=== PATIENT | female | born 1995 | race Caucasian/White ===

== ENCOUNTER 2019-01-27 02:40 | Inpatient (IN) | payer OTHER ==
[2019-01-27] MEDS: ELECTROLYTE-148 SOLN 1,000 ML IV SCH ×2 (03:30→07:30)
[2019-01-27 04:37] LABS: BASO % 0.4 % (0-2.0); EOS % 0.5 % (0-4.5); HEMATOCRIT 34.6 % (32.4-45.2); LYMPH % 13.1 % (8-40); MCH 30.1 pg (25.7-33.7); MCHC 34.7 g/dl (32.0-36.0); MEAN CELL VOLUME 86.8 fl (80-96); MEAN PLT VOLUME 9.4 fl (7.5-11.1); MONO % 5.1 % (3.8-10.2); NEUT % 80.9 % (42.8-82.8); PLATELET COUNT 216 K/MM3 (134-434); RBC 3.98 M/mm3 (3.60-5.2); RDW 13.3 % (11.6-15.6); WHITE BLOOD COUNT 11.3 K/mm3 (4.0-10.0)
[2019-01-27 04:59] VITALS: BMI 31.6
[2019-01-27 05:05] LABS: BLOOD UREA NITROGEN 9.2 mg/dL (7-18); CREATININE 0.5 mg/dL (0.55-1.3); INR 1.04 (0.83-1.09); POTASSIUM 4.5 mmol/L (3.5-5.1); PROTHROMBIN TIME (PATIENT) 12.3 SEC (9.7-13.0)
[2019-01-27] MEDS ORDERED: BUTORPHANOL TARTRATE 1 MG/ML VIAL IVPB ONE (05:20)
[2019-01-27] MEDS ORDERED: PROMETHAZINE HCL 25 MG/1 ML VIAL IVPB ONE (05:20)
[2019-01-27] MEDS ORDERED: BUTORPHANOL TARTRATE 1 MG/ML VIAL ONE ×2 (05:32)
[2019-01-27] MEDS ORDERED: PROMETHAZINE HCL 25 MG/1 ML VIAL ONE (05:33)
--- NOTE | 2019-01-27 05:36 | HP ---
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: Alzheimer's, CVA, Dementia, Migraine, Multiple Sclerosis, Peripheral Neuropathy, Parkinson's, Seizure, Syncope, TIA, Vertigo, Other Cardiovascular: No: AFIB, Aneurysm, Aortic Insufficiency, Aortic Stenosis, CAD, CHF, Deep Vein Thrombosis, HTN, Hyperlipdemia, [place], Mitral Insufficiency, Mitral Stenosis, Murmur, Pulmonary Hypertension, Other Pulmonary: No: Asthma, Bronchitis, Cancer, COPD, O2 Dependent, Pneumonia, Previously Intubated, Pulmonary Embolus, Pulmonary Fibrosis, Sleep Apnea, Other Gastrointestinal: No: Ascites, Cancer, Constipation, Crohn's Disease, Diverticulitis, Diverticulosis, Esophageal Varices, Gastritis, GERD, GI Bleed, Hemorrhoids, Hiatal Hernia, Inflamatory Bowel Disease, Irritable Bowel Disease, Pancreatitis, Peptic Ulcer Disease, Ulcerative Colitis, Other Hepatobiliary: No: Cirrhosis, Cholelithiasis, Cholecystitis, Choledocholithiasis , Hepatitis A, Hepatitis B, Hepatitis C, Other Renal/: No: Renal Failure, Renal Inusuff, BPH, Cancer, Hematuria, Hemodialysis , Neurogenic Bladder, Renal Calculi, UTI, Other Reproductive: No: Ectopic , Endometriosis, Fibroids, PID, Polycystic Ovary Syndrome, Postmenopausal, Other ...: 3 ...Para: 0 ...Term: 0 ...: 0 ...Spon : 0 ...Induced : 2 ...Multiple Gestation: 0 ...LMP: 04/30/18 ... Weeks Gestation by Dates: 38.5 ...EDC by Dates: 02/04/19 Heme/Onc: No: Anemia, B12 Deficiency, Bleeding Disorder, Cancer, Current Chemotherapy, Current Radiation Therapy, Hemochromatosis, Hypercoaguable State, Myeloproliferative Synd, Sickle Cell Disease, Sickle Cell Trait, Thrombocytopenia, Other Infectious Disease: No: AIDS, C-Diff, Herpes Zoster, HIV, MRSA, STD's, Tuberculosis, VREF, Other Psych: No: Addictions, Anxiety, Bipolar, Depression, Panic, Psychosis, Schizophrenia, Other Musculoskeletal: No: Bursitis, Chronic low back pain, Hemiparesis, Hemiplegia, Osteoarthritis, Paraplegia, Other Rheumatology: No: Fibromyalgia, Gout, Lupus, Rheumatoid Arthritis, Sarcoidosis, Vasculitis, Other ENT: No: Allergic Rhinitis, Sinusitis, Other Endocrine: No: Rapides's Disease, Amarjit's Disease, Diabetes Insipidus, Diabetes Mellitus, Hyperparathyroidism, Hyperthyroidism, Hypothyroidism, Osteopenia, SIADH, Other Dermatology: No: Basal Cell, Cellulitis, Eczema, Melanoma, Psoriasis, Squamous Cell, Other - Past Surgical History Past Surgical History: No: None, AAA Repair, AICD, Amputation, Appendectomy, Arthrosocopy, AV Fistula/Graft, Bariatric Surgery, Breast Biopsy, Bypass, CABG, Carotid Endarterectomy, Cataract Removal, Cholecystectomy, Colectomy, Colonoscopy, Colostomy, Craniotomy, , Cystectomy, Hernia Repair, Hysterectomy, Ileal Conduit, Ileosotomy, Joint Replacement, Kidney Transplant, Laminectomy, Liver Transplant, Mastectomy, Nephrectomy, Oopherectomy, Orchiectomy, Permanent Pacemaker, Prostatectomy, Splenectomy, Stent, Thoracotomy , TURP, Tonsillectomy, Tubal Ligation, Upper Endoscopy, Valve Replacement, Vasectomy, Vein Stripping/Ligation Hx Myomectomy: No Hx Transabdominal Cerclage: No - Smoking History Smoking history: Never smoked Have you smoked in the past 12 months: No - Alcohol/Substance Use Hx Alcohol Use: No Home Medications - Allergies Allergies/Adverse Reactions: Allergies Allergy/AdvReac Type Severity Reaction Status Date / Time No Known Allergies Allergy Verified 01/27/19 04:43 - Home Medications Home Medications: Ambulatory Orders Ferrous Sulfate [Iron] 1 tab PO DAILY 01/27/19 Glyburide 2.5 mg PO DAILY 01/27/19 Vitamins (Sjr) - 1 tab PO DAILY 01/27/19 Review of Systems - Review of Systems Constitutional: reports: No Symptoms Eyes: reports: No Symptoms HENT: reports: No Symptoms Neck: reports: No Symptoms Cardiovascular: reports: No Symptoms Respiratory: reports: No Symptoms Gastrointestinal: reports: No Symptoms Genitourinary: reports: No Symptoms, Testicular Pain Musculoskeletal: reports: No Symptoms Integumentary: reports: No Symptoms Neurological: reports: No Symptoms Endocrine: reports: No Symptoms Hematology/Lymphatic: reports: No Symptoms Psychiatric: reports: No Symptoms Physical Exam - Maternity Vital Signs: Vital Signs Temperature 98.7 F 01/27/19 04:50 Pulse Rate 94 H 01/27/19 04:50 Respiratory Rate 19 01/27/19 04:50 Blood Pressure 133/73 01/27/19 04:50 O2 Sat by Pulse Oximetry (%) Constitutional: Yes: Well Nourished HENT: Yes: Atraumatic Neck: Yes: Supple Cardiovascular: Yes: Regular Rate and Rhythm Lungs: Clear to auscultation - Abdominal Exam/OB Number of Fetuses: Single Presentation: Vertex (sutures palpated) Contractions: Yes Regularity: Regular Intensity: Mod/Strong Monitor Mode: External Heart Rate (range): 150 Category: I Accelerations: Uniform Decelerations: None - Vaginal Exam/OB Speculum Exam: No Dilatation (cm): 3 Effacement (%): 60 Amniotic Membrane Status: Ruptured Nitrazine Test: Positive Presentation: Vertex/Position Station: -3 - Physical Exam Musculoskeletal: Yes: WNL Extremities: Yes: WNL Edema: Yes Edema: LLE: Trace, RLE: Trace Integumentary: Yes: WNL ...Motor Strength: WNL Psychiatric: Yes: Alert, Oriented - Labs Lab Results: CBC, BMP 01/27/19 04:00 01/27/19 04:00 Imaging - Results Ultrasound: Report Reviewed (01/20/19 sono: cephalic, anterior placenta, 3500g ( 75%) and AC 90%) Assessment/Plan 23 y/o @ 38.6wks, latent labor S/P SROM, GBS negative, reassuring and maternal condition, A2GDM. Counseling regarding gestational diabetes including its risks and complications. All questions answered and informed consent obtained. Patient requesting IV pain control. -Labs -FS q4hrs -continuous monitoring -IV pain control -Expectant management
[2019-01-27] MEDS ORDERED: FENTANYL/BUPIVACAINE/NS/PF - PCEA - 50 ML DISP.SYRIN EP ONE ×4 (07:30→17:42)
--- NOTE | 2019-01-27 07:39 | PN ---
Ante-Partal Exam - Subjective Subjective: Patient evaluated for pain and progression of labor Vital Signs: Vital Signs Temperature 98.5 F 01/27/19 06:00 Pulse Rate 67 01/27/19 06:00 Respiratory Rate 20 01/27/19 06:00 Blood Pressure 123/86 01/27/19 06:00 O2 Sat by Pulse Oximetry (%) Bleeding: No Headache: No Visual changes: No Right upper quadrant pain: No - Contractions Contractions: Yes Regularity: Irritability Intensity: Unaware Monitor Mode: External - Exam during Labor Heart Rate: 150 Variability: Moderate Category: I Monitor Accelerations: Present Monitor Decelerations: None Exam: Vaginal Dilatation (cm): 4 Effacement (%): 80 Amniotic Membrane Status: Ruptured Station: -3 - Assessment/Plan Assessment/Plan: 23 y/o P0 @ 38.6wks, active labor, A2GDM and FS q 4hrs, GBS negative, desiring epidural -Epidural is OK -Expectant management
[2019-01-27] MEDS ORDERED: FENTANYL/BUPIVACAINE/NS/PF - PCEA - 50 ML DISP.SYRIN EP SCH (07:45)
[2019-01-27] MEDS ORDERED: BUPIVACAINE HCL/PF 2.5 MG/ML - 30 ML VIAL IJ ONE ×3 (07:47→16:14)
[2019-01-27] MEDS ORDERED: NALOXONE HCL 0.4 MG/ML VIAL IVPUSH PRN (07:48)
[2019-01-27] MEDS ORDERED: ACETAMINOPHEN 325 MG TABLET (FP) ONE ×2 (12:13→18:08)
[2019-01-27] MEDS ORDERED: ACETAMINOPHEN 325 MG TABLET (FP) PO ONE ×2 (12:45→18:30)
[2019-01-27] MEDS ORDERED: AMPICILLIN SODIUM 2 GM VIAL ONE (15:40)
[2019-01-27] MEDS ORDERED: AMPICILLIN - 2 GM in SODIUM CHLORIDE 100 ML IVPB ONE (15:45)
[2019-01-27] MEDS ORDERED: OXYTOCIN 30 UNITS in 0.9% NS 30 UNIT/500 ML INFUS.BAG IVPB ONE (15:59)
[2019-01-27] MEDS ORDERED: OXYTOCIN 30 UNITS in 0.9% NS 30 UNIT/500 ML INFUS.BAG IVPB SCH (16:00)
--- NOTE | 2019-01-27 16:24 | PN ---
Progress Note (short form) - Note Progress Note: 23 yrs , s/p SROM since 10.30 PM 01/26/19, onset LP 11.00 PM pt in labor admitted by Dr Adkins in at 3.00 AM she received stadol 2 mg + phenrgan 25 mg iv at 5,20 AM followed by Epidural labor analgesia at 8.05AM , she was 4 cm/80 %effaced .vx -3 at 7.35 AM 12.00 Noon Temp 100 F , she was given Tylenol 2 tabs as per order of Dr Campbell monotoring tracing reviewed dysfunctional UC 1-2 min-5-7 min , FHR 150 cat -1 , epidural was reinforced at 12.19 PM since 3.00 PM , UC are 2-3 min , sometimes 4 min apart, dysfunctional type , fhr 150 cat-1 3.35 pM 7 cm/irregular effacement , 90 %, mr, vx ) station, pelvis adequate pt c/o backache h/o GDM diet & Glyburide 2.5 mg po HS controlled Selected Entries 01/27/19 01/27/19 15:30 15:45 Temperature 98.8 F Pulse Rate 113 H 100 H Blood Pressure 127/73 137/68 Laboratory Tests 01/27/19 01/27/19 01/27/19 04:00 04:00 04:00 WBC 11.3 H Hgb 12.0 Hct 34.6 Plt Count 216 PT with INR 12.30 INR 1.04 PTT (Actin FS) 30.0 Sodium 137 Potassium 4.5 Chloride 107 Carbon Dioxide 22 BUN 9.2 POC Glucometer Random Glucose 74 Calcium 9.0 RPR Titer 01/27/19 01/27/19 01/27/19 04:00 07:53 11:59 WBC Hgb Hct Plt Count PT with INR INR PTT (Actin FS) Sodium Potassium Chloride Carbon Dioxide BUN POC Glucometer 98 85 Random Glucose Calcium RPR Titer Nonreactive 01/27/19 15:47 WBC Hgb Hct Plt Count PT with INR INR PTT (Actin FS) Sodium Potassium Chloride Carbon Dioxide BUN POC Glucometer 73 Random Glucose Calcium RPR Titer Plan since srom is 18 hrs approx, will start IV Ampicillin due to dysfunctional uc , I will start IV pitocin augmentation , titrate dose ct vaginal delivery trial
[2019-01-27] MEDS ORDERED: LIDOCAINE HCL 2% (20ML MULTI-DOSE VIAL) ONE (16:48)
[2019-01-27] MEDS ORDERED: LIDOCAINE HCL/PF 1% SDV 5ML VIAL ONE (16:50)
[2019-01-27] MEDS ORDERED: LIDOCAINE HCL 1% PRESERVATIVE FREE - 30ML VIAL ONE (17:00)
--- NOTE | 2019-01-27 17:36 | PN ---
Progress Note, Labor Vaginal Exam #1 Labor Exam Date: 01/27/19 Labor Exam Time: 17:30 Heart Rate (range): 155 Dilatation: 9 Effacement (%): 90 Amniotic Membrane Status: Ruptured Presentation: Vertex/Position Station: +1 (cx effacement still irregular , , more pronounced on right side) Remarks: uc 2-4 min fhr cat-1 Selected Entries 01/27/19 17:00 Pulse Rate 102 H Blood Pressure 126/74 Vaginal Exam #2 Labor Exam Date: 01/27/19 Labor Exam Time: 18:30 Heart Rate (range): 160-170 Dilatation: antlip Effacement (%): 100 Amniotic Membrane Status: Ruptured Presentation: Vertex/Position Station: +2 Remarks: uc 2-3 min fhr cat 2 tachycardia sometimes to 170 temp 100.7 6.10 pM rx po tyleno 2 tabs stat given Selected Entries 01/27/19 01/27/19 01/27/19 18:00 18:15 18:30 Temperature 100.7 F H Pulse Rate 101 H 112 H Blood Pressure 104/82 137/61 01/27/19 18:45 Temperature Pulse Rate 103 H Blood Pressure 133/59 L Vaginal Exam #3 Labor Exam Date: 01/27/19 Labor Exam Time: 19:00 Heart Rate (range): 170-180 Dilatation: 10 Effacement (%): 100 Amniotic Membrane Status: Ruptured Presentation: Vertex/Position Station: +2 (+2/+3) Remarks: fhr cat-2 , tachycardia uc 2-3 min pt encoraged to push Temp 100.5. Selected Entries 01/27/19 01/27/19 18:45 19:00 Temperature 100.5 F H Pulse Rate 103 H Blood Pressure 133/59 L
[2019-01-27] MEDS ORDERED: AMPICILLIN - 1 GM in SODIUM CHLORIDE 100 ML IVPB SCH (19:45)
[2019-01-27] MEDS ORDERED: OXYTOCIN 20 UNITS in 0.9% NS 40 UNIT/2,000 ML INFUS.BAG IV ONE (19:57)
[2019-01-27] MEDS ORDERED: oxyCODONE HCL 5 MG TABLET PO PRN (20:29)
[2019-01-27] MEDS ORDERED: WITCH HAZEL 50% (TUCKS) 40 PAD/JAR PAD TP PRN (20:29)
[2019-01-27] MEDS ORDERED: METHYLERGONOVINE MALEATE 0.2 MG/1 ML AMP IM PRN (20:29)
[2019-01-27] MEDS ORDERED: BISACODYL 10 MG SUPP.RECT RC PRN (20:29)
[2019-01-27] MEDS ORDERED: OXYTOCIN 20 UNITS in 0.9% NS 20 UNIT/1,000 ML INFUS.BAG IV SCH (20:30)
[2019-01-27] MEDS ORDERED: AMPICILLIN SODIUM 1 GM VIAL ONE (20:31)
--- NOTE | 2019-01-27 20:43 | PN ---
Delivery - Delivery Vaginal Delivery: No Problems, Spontaneous (, vx, jeimy position, immediate oral & nasal suction was done, no difficulty in delivering of shoulder encountered , median epi was given, which was sutured in layers with chr catgut #2/0 .placenta & membranes were delievered completely without difficulty. .sponge & needle count correct . cord trivascular , cord blood for cord gas & cord blood collected. hemorrhoid noted . CA exam mucosa & sphincter intact .) Type of Anesthesia: Local, Epidural Episiotomy/Laceration: Midline EBL (cc): 350 Delivery, Single - Stages of Labor Date 1st Stage Initiatied: 01/26/19 Time 1st Stage Initiated: 23:00 Date 2nd Stage Initiated: 01/27/19 Time 2nd Stage Initiated: 19:00 Date of Delivery: 01/27/19 Time of Delivery: 19:51 Date Placenta Delivered: 01/27/19 Time Placenta Delivered: 20:00 Placenta: Yes: Spontaneous, Uterine Exploration - Condition of Infant Gender: Male Weight: 7 lb 12 oz Position: Left, OA Total Hours ROM (Hrs/Mins): 21hrs,30 min - 1 Minute Total Score: 9 5 Minutes Total Score: 9 - Feeding Plan Initial Plan: Elected not to breastfeed exclusively throughout hospitalization Remarks - Remarks Remarks: 23 yrs , 38.5 weeks admitted for srom , in labor gbs neg stadol + phenrgan followed by epidural for labor analgesia was given . last 2 hrs tachycardia >160, max [id number] bpm intrapartum temp max 100,7 .rx iv ampicillin 2 gm was given after 18 hrs of srom , 2 nd dose 1 gm was given urine c/s & intrauterine culture taken PPTemp 8.15 PM Temp 99.F BGM 101
[2019-01-27] MEDS: IBUPROFEN 600 MG TABLET (FP) PO PRN (21:57)
[2019-01-27] MEDS: ACETAMINOPHEN 325 MG TABLET (FP) PO PRN (21:58)
[2019-01-27] MEDS: BENZOCAINE 20% 57 GM BOTTLE TP PRN (21:59)
[2019-01-27] MEDS: BENZOCAINE 28 GM HEMORRHOIDAL OINTMENT TP PRN (22:00)
[2019-01-28] MEDS: ACETAMINOPHEN 325 MG TABLET (FP) PO PRN ×3 (06:09→22:33)
[2019-01-28] MEDS: IBUPROFEN 600 MG TABLET (FP) PO PRN ×3 (06:09→22:33)
[2019-01-28] MEDS: FERROUS SO4 325 MG TABLET (FP) PO SCH ×2 (07:36→17:00)
--- NOTE | 2019-01-28 08:19 | PN ---
Post Progress Note - Subjective Subjective: c/o perineal soreness no fever Post Day: 1 Type of Delivery: Vital Signs: Vital Signs Temperature 98.1 F 01/28/19 06:00 Pulse Rate 84 01/28/19 06:00 Respiratory Rate 20 01/28/19 06:00 Blood Pressure 116/56 L 01/28/19 02:00 O2 Sat by Pulse Oximetry (%) 100 01/27/19 21:00 Selected Entries 01/27/19 01/28/19 22:43 02:00 Temperature 98.4 F 98.1 F Pulse Rate 84 85 Blood Pressure 113/59 L Breast Exam: Yes: Soft, Other (plans to BF & bottle feed ). No: Engorged Uterus: Yes: Fundus Firm, Fundus below umbilicus, Non-tender Lochia: Yes: Rubra Lochia, amount: Moderate Extremities: Yes: Calves non-tender Perineum: Yes: Episiotomy (healing , large hemorrhoids ) Activity: Ambulating - Labs Labs: CBC WBC 11.3 K/mm3 (4.0-10.0) H 01/27/19 04:00 RBC 3.98 M/mm3 (3.60-5.2) 01/27/19 04:00 Hgb 12.0 GM/dL (10.7-15.3) 01/27/19 04:00 Hct 34.6 % (32.4-45.2) 01/27/19 04:00 MCV 86.8 fl (80-96) 01/27/19 04:00 MCH 30.1 pg (25.7-33.7) 01/27/19 04:00 MCHC 34.7 g/dl (32.0-36.0) 01/27/19 04:00 RDW 13.3 % (11.6-15.6) 01/27/19 04:00 Plt Count 216 K/MM3 (134-434) 01/27/19 04:00 MPV 9.4 fl (7.5-11.1) 01/27/19 04:00 Absolute Neuts (auto) 9.1 K/mm3 (1.5-8.0) H 01/27/19 04:00 Neutrophils % 80.9 % (42.8-82.8) 01/27/19 04:00 Lymphocytes % 13.1 % (8-40) 01/27/19 04:00 Monocytes % 5.1 % (3.8-10.2) 01/27/19 04:00 Eosinophils % 0.5 % (0-4.5) 01/27/19 04:00 Basophils % 0.4 % (0-2.0) 01/27/19 04:00 Nucleated RBC % 0 % (0-0) 01/27/19 04:00 Laboratory Tests 01/27/19 01/28/19 20:46 05:55 POC Glucometer 101 99 Problem List - Problems (1) with 38 completed weeks gestation Code(s): Z3A.38 - 38 WEEKS GESTATION OF (2) SROM (spontaneous rupture of membranes) Code(s): RAW7133 - (3) (normal spontaneous vaginal delivery) Code(s): O80 - ENCOUNTER FOR FULL-TERM UNCOMPLICATED DELIVERY (4) examination following vaginal delivery Code(s): Z39.2 - ENCOUNTER FOR ROUTINE FOLLOW-UP Assessment/Plan pt doing fine , afebrile after febrile episode during labor . ct pp care discharge tomorrow.
[2019-01-28 09:30] LABS: BASO % 0.4 % (0-2.0); EOS % 0.4 % (0-4.5); HEMATOCRIT 33.6 % (32.4-45.2); HEMOGLOBIN 11.5 GM/dL (10.7-15.3); LYMPH % 8.9 % (8-40); MCH 29.6 pg (25.7-33.7); MCHC 34.1 g/dl (32.0-36.0); MEAN CELL VOLUME 86.9 fl (80-96); MEAN PLT VOLUME 8.3 fl (7.5-11.1); MONO % 5.1 % (3.8-10.2); NEUT % 85.2 % (42.8-82.8); PLATELET COUNT 194 K/MM3 (134-434); RBC 3.87 M/mm3 (3.60-5.2); RDW 13.4 % (11.6-15.6); WHITE BLOOD COUNT 16.6 K/mm3 (4.0-10.0)
[2019-01-28] MEDS: PRENATAL VITAMINS W/ FOLIC ACID TABLET (FP) PO SCH (09:42)
[2019-01-28 11:11] LABS: POC NITRAZINE POS
[2019-01-28] MEDS ORDERED: SENNOSIDES/DOCUSATE COMBO (SENNA PLUS) TABLET (UD) PO PRN (22:00)
[2019-01-28 22:23] VITALS: PULSE 74
--- NOTE | 2019-01-29 05:03 | DS ---
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 Vital Signs: Vital Signs Temperature 98.3 F 01/28/19 22:00 Pulse Rate 74 01/28/19 22:00 Respiratory Rate 18 01/28/19 22:00 Blood Pressure 125/69 01/28/19 22:00 O2 Sat by Pulse Oximetry (%) 100 01/27/19 21:00 Constitutional: Yes: Well Nourished Eyes: Yes: Conjunctiva Clear HENT: Yes: Atraumatic Neck: Yes: Supple Cardiovascular: Yes: Regular Rate and Rhythm Respiratory: Yes: Regular Gastrointestinal: Yes: Normal Bowel Sounds Pelvis: Yes: WNL External Genitalia: Yes: Normal Vaginal Exam: Yes: Normal Cervix: Yes: Normal Uterus: Yes: Firm ....Post : Yes: Uterus firm Breast(s): Yes: WNL Musculoskeletal: Yes: WNL Extremities: Yes: WNL Neurological: Yes: Alert, Oriented ...Motor Strength: WNL Psychiatric: Yes: Alert, Oriented Labs: CBC, BMP 01/28/19 09:15 01/27/19 04:00 Delivery - Delivery Vaginal Delivery: No Problems, Spontaneous (, vx, jeimy position, immediate oral & nasal suction was done, no difficulty in delivering of shoulder encountered , median epi was given, which was sutured in layers with chr catgut #2/0 .placenta & membranes were delievered completely without difficulty. .sponge & needle count correct . cord trivascular , cord blood for cord gas & cord blood collected. hemorrhoid noted . MS exam mucosa & sphincter intact .) Type of Anesthesia: Local, Epidural Episiotomy/Laceration: Midline EBL (cc): 350 Delivery, Single - Stages of Labor Date 1st Stage Initiatied: 01/26/19 Time 1st Stage Initiated: 23:00 Date 2nd Stage Initiated: 01/27/19 Time 2nd Stage Initiated: 19:00 Date of Delivery: 01/27/19 Time of Delivery: 19:51 Time Placenta Delivered: 20:00 Placenta: Yes: Spontaneous, Uterine Exploration - Condition of Infant Assistant Education Director/Cna Instructor Present: No Gender: Male Weight: 7 lb 12 oz Position: Left, OA Total Hours ROM (Hrs/Mins): 21hrs,30 min - 1 Minute Total Score: 9 5 Minutes Total Score: 9 - Feeding Plan Initial Plan: Elected not to breastfeed exclusively throughout hospitalization Discharge Summary Problems reviewed: Yes Reason For Visit: LABOR Current Active Problems (normal spontaneous vaginal delivery) (Acute) examination following vaginal delivery (Acute) with 38 completed weeks gestation (Acute) SROM (spontaneous rupture of membranes) (Acute) Procedures: Principal: Normal spontaneous vaginal delivery Hospital Course: Routine care Health Concerns: None Plan of Treatment: Analgesia F/U in clinic in 6 weeks Goals: Resume normal activities in 6 weeks Condition: Stable - Instructions Diet, Activity, Other Instructions: Post Instructions DIET: Continue good diet high in protein, calcium, and iron rich foods. Drink at least eight (8) glasses of water daily in addition to other fluids. _ ct Diabetic Diet MEDICATIONS: Continue vitamins and iron as previously directed. Motrin and Tylenol may be taken for minor discomfort. ACTIVITY: Mild to moderate exercise may be started in two (2) weeks. Take frequent rest periods. Resume normal activity after six (6) week check up. WOUND CARE OF OPERATIVE SITE: Continue use of perineal bottle until vaginal discharge stops. Keep area clean. Shower daily. Keep abdominal wound dry. Report any drainage or redness to physician. Tub baths, tampons and douches are not permitted for 6 weeks. SITZ BATH PRN FOR PERINEAL PAIN ct Breast feeding & or Bottle feeding BREAST CARE: (For those that are not breast feeding): If engorgement occurs: Wear tight fitting bra. Take Tylenol or Motrin for pain. Apply cold packs (ice in bags to each breast ) FAMILY PLANNING: There are many control alternatives to pursue and they should be discussed at your first office visit. You may resume sexual activity after your six (6) week check up. (Remember, breast feeding is not a contraceptive) NEXT PHYSICIAN APPOINTMENT: Be certain to call for a four (4) week appointment, unless otherwise directed. Call Clinic or got to Emergency Dept if you have any of the following: Heavy vaginal bleeding Painful urination Leg pain Unusual odor noted to vaginal bleeding High fever Red streaking noted on breast Referrals: Ghada Burciaga MD [Staff Physician] - Disposition: HOME - Home Medications Comprehensive Discharge Medication List: Ambulatory Orders Ferrous Sulfate [Iron] 1 tab PO DAILY 01/27/19 Vitamins (Sjr) - 1 tab PO DAILY 01/27/19 Acetaminophen [Tylenol .Regular Strength -] 650 mg PO Q3H PRN tablet 01/28/19 Benzocaine [Americaine 20% [place] -] 1 spray TP PRN PRN bottle 01/28/19 Ferrous Sulfate [Feosol] 325 mg PO BIDWM #60 tab 01/28/19 Ibuprofen [Motrin -] 600 mg PO Q4H PRN #30 tablet 01/28/19 Vitamins (Sjr) - 1 tab PO DAILY #30 tablet 01/28/19 Sennosides/Docusate Sodium [Pericolace -] 2 tablet PO HS PRN #30 tablet Witch Monica 50% (Tucks) [Tucks Pads -] 1 pad TP PRN PRN pad 01/28/19
[2019-01-29] MEDS: IBUPROFEN 600 MG TABLET (FP) PO PRN (08:49)
[2019-01-29] MEDS: FERROUS SO4 325 MG TABLET (FP) PO SCH (08:49)
[2019-01-29] MEDS: ACETAMINOPHEN 325 MG TABLET (FP) PO PRN (08:49)
[2019-01-29] MEDS: PRENATAL VITAMINS W/ FOLIC ACID TABLET (FP) PO SCH (10:28)
[2019-01-29] MEDS: BENZOCAINE 20% 57 GM BOTTLE TP PRN (10:34)
[2019-01-29] MEDS: BENZOCAINE 28 GM HEMORRHOIDAL OINTMENT TP PRN (10:34)
[2019-01-29 11:27] VITALS: BP 126/74; TEMP 98.2
--- NOTE | 2019-02-03 13:48 | PATH ---
Surgical Pathology Report Patient Name: LUCIO VILLASENOR [facility]. Rec. 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 Specimen(s) Received PLACENTA Clinical History , 38.5 weeks gestation, gestational diabetic, prolonged rupture of membranes with maternal temperature 100.7 Final Diagnosis PLACENTA, DELIVERY: 507 G THIRD TRIMESTER PLACENTA WITH TRIVASCULAR UMBILICAL CORD, MODERATE TO SEVERE ACUTE CHORIOAMNIONITIS, AND FOCAL MILD ACUTE PHLEBITIS. Electronically Signed Fariha Jacobson M.D. Gross Description The specimen is received fresh labeled placenta and is a 507 gram, 16.5 x 14.5 x 3.3 cm. placenta with attached membranes and umbilical cord. The attached membranes are sapp, translucent with focal opacities and insert marginally. The umbilical cord measures 19 cm. in length and averages 1.3 cm. in diameter. The cord inserts eccentrically, 5.5 cm. to the nearest margin. No true knots or strictures are identified. Cut surface of the umbilical cord reveals 3 vessels. The surface is pierre-blue with minimal fibrin deposition and appropriate caliber vessels. The maternal surface is red-brown with focal defects. Sectioning reveals red-brown, spongy parenchyma. No lesions are identified. Metal Coater Operator sections are submitted in three cassettes as follows: 1- membrane rolls and umbilical cord; 2-3- full thickness sections of placenta. 02/02/201902/02/2019
== END 2019-01-29 13:45 | disposition home or self-care (01) | DRG 807 ==
LOC: JLDR 02:40 → J3W 21:47
PROVIDERS: ADMIT Obstetrics & Gynecology; ATTEND Obstetrics & Gynecology
PROC: 10E0XZZ Delivery of Products of Conception, External Approach (ICD-10-PCS; principal; 2019-01-27)
PROC: 0W8NXZZ Division of Female Perineum, External Approach (ICD-10-PCS; 2019-01-27)
DX: O24.425 Gestational diabetes mellitus in childbirth, controlled by oral hypoglycemic drugs (principal); K64.9 Unspecified hemorrhoids; Z37.0 Single live birth; Z3A.38 38 weeks gestation of pregnancy
CPT/HCPCS: 36415; 36600; 59409; 80048; 82803; 82962; 83986-QW; 85025; 85610; 85730; 86593; 86850; 86900; 86901; 87070; 87086; 87205; 88307-TC

== ENCOUNTER 2022-01-29 07:44 | Inpatient (IN) | payer OTHER ==
[2022-01-29] MEDS: ELECTROLYTE-148 SOLN 1,000 ML IV SCH ×2 (09:20→11:50)
[2022-01-29 09:38] LABS: BASO % 0.6 % (0-2.0); EOS % 1.5 % (0-4.5); HEMATOCRIT 33.6 % (32.4-45.2); HEMOGLOBIN 11.7 GM/dL (10.7-15.3); LYMPH % 13.5 % (8-40); MCH 29.5 pg (25.7-33.7); MCHC 34.7 g/dl (32.0-36.0); MEAN CELL VOLUME 84.9 fl (80-96); MEAN PLT VOLUME 8.4 fl (7.5-11.1); MONO % 5.6 % (3.8-10.2); NEUT % 78.8 % (42.8-82.8); PLATELET COUNT 190 10^3/uL (134-434); RBC 3.95 M/mm3 (3.60-5.2); RDW 13.4 % (11.6-15.6); WHITE BLOOD COUNT 8.7 K/mm3 (4.0-10.0)
[2022-01-29 09:46] LABS: INR 1.02 (0.83-1.09); PROTHROMBIN TIME (PATIENT) 11.7 SEC (9.7-13.0)
[2022-01-29 09:48] LABS: ACTIVATED PTT 28.6 SECONDS (25.2-36.5)
[2022-01-29 10:01] LABS: BLOOD UREA NITROGEN 8.2 mg/dL (7-18); CALCIUM 8.7 mg/dL (8.5-10.1)
[2022-01-29 10:05] LABS: CREATININE 0.7 mg/dL (0.55-1.3)
[2022-01-29] MEDS ORDERED: AMPICILLIN SODIUM 2 GM VIAL ONE (10:29)
[2022-01-29] MEDS ORDERED: BUTORPHANOL TARTRATE 1 MG/ML VIAL IVPB ONE (10:29)
[2022-01-29] MEDS ORDERED: PROMETHAZINE HCL 25 MG/1 ML VIAL IVPUSH ONE (10:29)
[2022-01-29] MEDS ORDERED: AMPICILLIN - 2 GM in SODIUM CHLORIDE 100 ML IVPB ONE (10:32)
[2022-01-29 10:39] VITALS: BMI 32.1
[2022-01-29] MEDS ORDERED: FENTANYL/BUPIVACAINE/NS/PF - PCEA - 50 ML DISP.SYRIN EP ONE (10:51)
[2022-01-29] MEDS ORDERED: NALOXONE HCL 0.4 MG/ML VIAL IVPUSH PRN (11:09)
[2022-01-29] MEDS ORDERED: FENTANYL CITRATE/PF 50 MCG/ML VIAL ONE (11:10)
[2022-01-29] MEDS ORDERED: FENTANYL/BUPIVACAINE/NS/PF - PCEA - 50 ML DISP.SYRIN EP SCH (11:15)
[2022-01-29] MEDS ORDERED: OXYTOCIN 30 UNITS in 0.9% NS 30 UNIT/500 ML INFUS.BAG IVPB ONE (12:01)
[2022-01-29] MEDS ORDERED: OXYTOCIN 30 UNITS in 0.9% NS 30 UNIT/500 ML INFUS.BAG IVPB SCH (12:05)
[2022-01-29] MEDS ORDERED: AMPICILLIN SODIUM 1 GM VIAL ONE (13:42)
[2022-01-29] MEDS ORDERED: AMPICILLIN - 1 GM in SODIUM CHLORIDE 100 ML IVPB SCH (14:45)
[2022-01-29] MEDS ORDERED: OXYTOCIN 20 UNITS in 0.9% NS 20 UNIT/1,000 ML INFUS.BAG IV ONE (15:24)
[2022-01-29] MEDS ORDERED: oxyCODONE HCL 5 MG TABLET PO PRN (16:40)
[2022-01-29] MEDS ORDERED: METHYLERGONOVINE MALEATE 0.2 MG/1 ML AMP IM PRN (16:40)
[2022-01-29] MEDS ORDERED: BISACODYL 10 MG SUPP.RECT RC PRN (16:40)
[2022-01-29] MEDS ORDERED: BENZOCAINE 28 GM HEMORRHOIDAL OINTMENT TP PRN (16:40)
[2022-01-29] MEDS ORDERED: ACETAMINOPHEN 325 MG TABLET (FP) PO PRN (16:40)
[2022-01-29] MEDS ORDERED: WITCH HAZEL 50% (TUCKS) 40 PAD/JAR PAD TP PRN (16:40)
[2022-01-29] MEDS ORDERED: BENZOCAINE 20% 57 GM BOTTLE TP PRN (16:40)
[2022-01-29] MEDS ORDERED: OXYTOCIN 20 UNITS in 0.9% NS 20 UNIT/1,000 ML INFUS.BAG IV SCH (16:45)
[2022-01-29 17:00] LABS: CORD BASE EXCESS -4.2 mmol/L (0-2); CORD HCO3 22.1 mmHg (20-29); CORD PCO2 44.5 mmHg (30-78); CORD pH 7.313 (7.14-7.44)
[2022-01-29 17:03] LABS: CORD BASE EXCESS -7.5 mmol/L (0-2); CORD HCO3 23.1 mmHg (20-29); CORD PCO2 67.4 mmHg (30-78); CORD pH 7.152 (7.14-7.44)
[2022-01-29] MEDS: FERROUS SO4 325 MG TABLET (FP) PO SCH (17:45)
[2022-01-29] MEDS ORDERED: IBUPROFEN 600 MG TABLET (FP) PO ONE (17:48)
[2022-01-29] MEDS: IBUPROFEN 600 MG TABLET (FP) PO PRN (23:26)
[2022-01-30 07:58] LABS: BASO % 0.8 % (0-2.0); EOS % 1.5 % (0-4.5); HEMATOCRIT 27.6 % (32.4-45.2); HEMOGLOBIN 9.6 GM/dL (10.7-15.3); LYMPH % 19.9 % (8-40); MCH 29.7 pg (25.7-33.7); MCHC 34.8 g/dl (32.0-36.0); MEAN CELL VOLUME 85.3 fl (80-96); MEAN PLT VOLUME 8.7 fl (7.5-11.1); MONO % 7.5 % (3.8-10.2); NEUT % 70.3 % (42.8-82.8); PLATELET COUNT 153 10^3/uL (134-434); RBC 3.24 M/mm3 (3.60-5.2); RDW 13.9 % (11.6-15.6); WHITE BLOOD COUNT 8.3 K/mm3 (4.0-10.0)
[2022-01-30] MEDS: IBUPROFEN 600 MG TABLET (FP) PO PRN ×3 (08:39→23:23)
[2022-01-30] MEDS: FERROUS SO4 325 MG TABLET (FP) PO SCH ×2 (08:39→16:41)
[2022-01-30 10:22] LABS: POC NITRAZINE NEG
[2022-01-30] MEDS: PRENATAL VITAMINS W/ FOLIC ACID TABLET (FP) PO SCH (11:00)
[2022-01-30 15:08] VITALS: RESP 18
[2022-01-30] MEDS ORDERED: SENNOSIDES/DOCUSATE COMBO (SENNA PLUS) TABLET (UD) PO PRN (22:00)
[2022-01-30 22:27] VITALS: BP 113/69; PULSE 76; TEMP 98.6
[2022-01-31] MEDS: IBUPROFEN 600 MG TABLET (FP) PO PRN (09:04)
[2022-01-31] MEDS: FERROUS SO4 325 MG TABLET (FP) PO SCH (09:08)
[2022-01-31] MEDS: PRENATAL VITAMINS W/ FOLIC ACID TABLET (FP) PO SCH (09:08)
== END 2022-01-31 12:00 | disposition home or self-care (01) | DRG 807 ==
LOC: JDEL 07:44 → JLDR 09:15 → J3W 20:30
PROVIDERS: ADMIT Obstetrics & Gynecology; ATTEND Obstetrics & Gynecology
PROC: 10E0XZZ Delivery of Products of Conception, External Approach (ICD-10-PCS; principal; 2022-01-29)
PROC: 0W8NXZZ Division of Female Perineum, External Approach (ICD-10-PCS; 2022-01-29)
PROC: 0HQ9XZZ Repair Perineum Skin, External Approach (ICD-10-PCS; 2022-01-29)
DX: O70.0 First degree perineal laceration during delivery (principal); Z37.0 Single live birth; O99.824 Streptococcus B carrier state complicating childbirth; O36.63X0 Maternal care for excessive fetal growth, third trimester, not applicable or unspecified; O99.214 Obesity complicating childbirth; E66.9 Obesity, unspecified; O90.81 Anemia of the puerperium; Z3A.39 39 weeks gestation of pregnancy
CPT/HCPCS: 36415; 36600; 59409; 80048; 82803; 83986-QW; 85025; 85610; 85730; 86780; 86850; 86900; 86901; C9803-CS; U0003; U0005